=== PATIENT | male | born 1950 | race Caucasian/White ===

== ENCOUNTER 2019-10-21 09:57 | Emergency (ER) | payer OTHER, BC ==
[2019-10-21 11:15] LABS: INTERNATIONAL RATION (INR) 3.16; PROTHROMBIN TIME 33.1 SEC (11.4-15.4)
[2019-10-21 11:16] LABS: PARTIAL THROMBOPLASTIN TIME 43.3 SEC (23.5-35.8)
--- NOTE | 2019-10-21 11:49 | ER Document Report ---
ED Medical Screen (RME) - General Chief Complaint: Redness of Eye Stated Complaint: EYE PROBLEM Time Seen by Provider: 10/21/19 11:47 Notes: Patient is a 69-year-old male who presents emergency department with a chief complaint of bleeding on the eye. Patient reports he is on Coumadin and did notice some bleeding around the white of his eye last week. Patient reports this had improved. Patient denies trauma. Patient reports waking up this morning and noticing blood around the whites of his eye again. Patient denies trauma, fall, head injury, pain to the eye or visual disturbance. Patient denies blurred vision or double vision. TRAVEL OUTSIDE OF THE [place] IN LAST 30 DAYS: No - Related Data Allergies/Adverse Reactions: No Known Allergies Allergy (Verified 10/21/19 10:30) Home Medications: warafin. multivitamin. asa 81 Past Medical History - Social History Chew tobacco use (# tins/day): No Frequency of alcohol use: Social Drug Abuse: None Physical Exam - Vital signs Vitals: Temp Pulse Resp BP Pulse Ox 98.3 F 80 16 155/80 H 97 10/21/19 09:59 10/21/19 09:59 10/21/19 09:59 10/21/19 09:59 10/21/19 09:59 Course - Re-evaluation Re-evalutation: 10/21/19 11:48 Patient is noted to have a conjunctival hemorrhage noted to the right eye. Will obtain visual acuity and coagulation studies due to the patient's history of Coumadin. Patient no acute distress. I have greeted and performed a rapid initial assessment of this patient. A comprehensive ED assessment and evaluation of the patient, analysis of test results and completion of the medical decision making process will be conducted by additional ED providers. - Vital Signs Vital signs: Temp Pulse Resp BP Pulse Ox 98.3 F 80 16 155/80 H 97 10/21/19 10:30 10/21/19 10:30 10/21/19 10:30 10/21/19 10:30 10/21/19 10:30 - Laboratory Laboratory results interpreted by me: 10/21/19 10:52 PT 33.1 H APTT 43.3 H
--- NOTE | 2019-10-21 13:02 | ER Document Report ---
HPI - HPI Time Seen by Provider: 10/21/19 11:47 Pain Level: 0 Notes: Patient is a 69-year-old male who presents complaining of bleeding in the white of his eye on his right side that he noticed this morning without any precipitating event that he is aware of. He has not had any changes in his vision. He is otherwise able to eat and drink without difficulty. He is urinating normally and having normal bowel movements. He does not wear contact lenses. 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 He has not had his Coumadin checked in a while, usually just once per month. Patient states that he is supposed to be between 2 and 3 with his INR. He has no other concerns or complaints. No melena or hematochezia. No nosebleeds or hematuria. Denies any headache, fever, head injury, neck pain, changes in vision/speech/mentation/hearing, URI, sore throat, chest pain, palpitations, syncope, cough, shortness of breath, wheeze, dyspnea, abdominal pain, nausea/vomiting/diarrhea, urinary retention, dysuria, hematuria, or rash. - ROS Systems Reviewed and Negative: Yes All other systems reviewed and negative - EENT EENT: REPORTS: Ear Pain - Redness - REPRODUCTIVE Reproductive: DENIES: : Past Medical History - Social History Smoking Status: Current Every Day Smoker Chew tobacco use (# tins/day): No Frequency of alcohol use: Social Drug Abuse: None Family History: Reviewed & Not Pertinent Patient has suicidal ideation: No Patient has homicidal ideation: No Vertical Provider Document - CONSTITUTIONAL Agree With Documented VS: Yes Notes: PHYSICAL EXAMINATION: GENERAL: Well-appearing, well-nourished and in no acute distress. HEAD: Atraumatic, normocephalic. EYES: Pupils equal round and reactive to light, extraocular movements intact, sclera anicteric, + rt subconjunctival hemorrhage. ENT: Nares patent and without discharge. oropharynx clear without exudates. No tonsilar hypertrophy or erythema. Moist mucous membranes. NECK: Normal range of motion, supple without lymphadenopathy LUNGS: Breath sounds clear to auscultation bilaterally and equal. No wheezes rales or rhonchi. HEART: Regular rate and rhythm without murmurs, rubs, gallops. Musculoskeletal: FROM to passive/active. Strength 5+/5. Extremities: No cyanosis, clubbing, or edema b/l. Peripheral pulses 2+. Capillary refill less than 3 seconds. NEUROLOGICAL: Cranial nerves grossly intact. Normal speech, normal gait. Normal sensory, motor exams PSYCH: Normal mood, normal affect. SKIN: Warm, Dry, normal turgor, no rashes or lesions noted. - INFECTION CONTROL TRAVEL OUTSIDE OF THE [place] IN LAST 30 DAYS: No Course - Re-evaluation Re-evalutation: 10/21/19 12:59 Patient is an afebrile, well-hydrated, 69-year-old male who presents with a right subconjunctival hemorrhage, otherwise benign in the setting of having an INR of 3.16. This is just outside of his range of 2-3. Vitals are acceptable without significant tachycardia, tachypnea, or hypoxia. PE is otherwise unremarkable. There is no other evidence of bleeding. No further work-up warranted. We will have the patient hold his next Coumadin dose and then resume as usual, but he is to have his INR checked in the next 3 days [facility] Low suspicion for any other systemic or emergent condition at this time. Vision to monitor for any changes in symptoms or worsening bleeding. Recheck with your PCM next week. Return to the ED with any other worsening/concerning symptoms. Patient is in agreement. - Vital Signs Vital signs: Temp Pulse Resp BP Pulse Ox 98.3 F 80 16 155/80 H 97 10/21/19 10:30 10/21/19 10:30 10/21/19 10:30 10/21/19 10:30 10/21/19 10:30 - Laboratory Laboratory results interpreted by me: 10/21/19 10:52 PT 33.1 H APTT 43.3 H Discharge - Discharge Clinical Impression: Subconjunctival hemorrhage of right eye Condition: Stable Disposition: HOME, SELF-CARE Additional Instructions: Hold your next Coumadin dose Contact your family doctor on Wednesday to have an INR rechecked in about 3 days. Monitor for any other areas of bleeding Follow-up with your family provider next week Consider appointment with ophthalmology Return to the ED with any worsening symptoms and/or development of fever, headache, changes in behavior/mentation/vision/speech, chest pain, palpitations, syncope, shortness of breath, trouble breathing, abdominal pain, n/v/d, blood in stool/urine, loss of control of bowel/bladder, urinary retention, or other worsening symptoms that are concerning to you. Forms: Elevated Blood Pressure, Smoking Cessation Education Referrals: SILVIA SHEIKH MD [ACTIVE STAFF] - Follow up as needed
[2019-10-21 13:14] VITALS: BP 154/74
== END 2019-10-21 13:18 | disposition home or self-care (01) ==
LOC: ER 09:57
DX: H11.31 Conjunctival hemorrhage, right eye (principal); H92.09 Otalgia, unspecified ear; Z86.718 Personal history of other venous thrombosis and embolism; Z79.01 Long term (current) use of anticoagulants; F17.200 Nicotine dependence, unspecified, uncomplicated
CPT/HCPCS: 36415; 85610; 85730; 99283

== ENCOUNTER 2020-04-17 09:06 | Emergency (ER) | payer OTHER, MEDICARE, BC ==
[2020-04-17 09:10] VITALS: BP 153/74
--- NOTE | 2020-04-17 09:56 | RADIOLOGY REPORT (SQ) ---
EXAM DESCRIPTION: WRIST RIGHT 3 VIEWS IMAGES COMPLETED DATE/TIME: 04/17/2020 9:42 am REASON FOR STUDY: fall COMPARISON: None. NUMBER OF VIEWS: Three views. TECHNIQUE: AP, lateral, and oblique radiographic images acquired of the right wrist. LIMITATIONS: None. FINDINGS: MINERALIZATION: Normal. BONES: No acute fracture or dislocation. No worrisome bone lesions. Normal alignment. SOFT TISSUES: No soft tissue swelling. No foreign body. OTHER: No other significant finding. IMPRESSION: NO RADIOGRAPHIC EVIDENCE OF ACUTE INJURY. TECHNICAL DOCUMENTATION: JOB ID: [id number] 2010 [employer]- All Rights Reserved Reading location - IP/workstation name: [email or web address]
--- NOTE | 2020-04-17 10:19 | ER Document Report ---
HPI - HPI Patient complains to provider of: Right wrist injury Time Seen by Provider: 04/17/20 10:09 Pain Level: 4 Context: 69-year-old male past medical history significant for hypertension DVT presents emergency room complaining of right wrist pain. Patient states he was outside walking last night when he tripped and fell and landed on his right wrist. Took Tylenol without relief. Worsening pain and swelling today. No history of previ ous trauma or injury to his right wrist. Patient is right-handed. Denies any head trauma or head injury. No loss of consciousness. Associated Symptoms: None Exacerbated by: Movement Relieved by: Denies Similar symptoms previously: No Recently seen / treated by doctor: No - ROS ROS below otherwise negative: Yes - CONSTITUTIONAL Constitutional: DENIES: Fever - NEURO Neurology: DENIES: Weakness - REPRODUCTIVE Reproductive: DENIES: : - MUSCULOSKELETAL Musculoskeletal: REPORTS: Extremity pain - right wrist - DERM Skin Color: Normal Skin Problems: None Past Medical History - General Information source: Patient - Social History Smoking Status: Current Every Day Smoker Frequency of alcohol use: Heavy Drug Abuse: None Family History: Reviewed & Not Pertinent Patient has homicidal ideation: No - Past Medical History Cardiac Medical History: Reports: Hx Hypertension Past Surgical History: Reports: Hx Orthopedic Surgery - back/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 IN LAST 30 DAYS: No - HEENT HEENT: Atraumatic, Normocephalic - NECK Neck: Normal Inspection, Supple - RESPIRATORY Respiratory: Breath Sounds Normal, No Respiratory Distress, Chest Non-Tender. negative: Rales, Rhonchi, Wheezing - CARDIOVASCULAR Cardiovascular: Regular Rate, Regular Rhythm, No Murmur - MUSCULOSKELETAL/EXTREMETIES Musculoskeletal/Extremeties: FROM, Tender - Tenderness over the right distal radius. Full range of motion with pain noted with flexion and extension. No obvious deformity noted. - NEURO Level of Consciousness: Awake, Alert, Appropriate Motor/Sensory: No Motor Deficit, No Sensory Deficit Notes: Positive right radial pulse. Capillary refill less than 3 seconds. Neurovascular intact. - DERM Integumentary: Warm, Dry, No Rash Course - Re-evaluation Re-evalutation: 04/17/20 10:16 Patient is resting comfortably Madan wrap applied by nursing staff as documented. Reviewed x-ray results with patient. Counseled to rest, ice, elevate pain medication as prescribed. Can remove Madan wrap for shower. Outpatient follow-up with orthopedics if not improving in 2 to 3 days. On-call physician was provided. Patient was given strict return to the emergency room guidelines. Return for any new or worsening symptoms. All questions were answered. Patient verbalized understanding and agrees with plan of care. - Vital Signs Vital signs: Temp Pulse Resp BP Pulse Ox 98.6 F 88 16 153/74 H 97 04/17/20 09:09 04/17/20 09:09 04/17/20 09:09 04/17/20 09:09 04/17/20 09:09 - Diagnostic Test Radiology reviewed: Reports reviewed Discharge - Discharge Clinical Impression: Right wrist sprain Qualifiers: Encounter type: initial encounter Qualified Code(s): S63.501A - Unspecified sprain of right wrist, initial encounter Condition: Stable Disposition: HOME, SELF-CARE Instructions: Wrist Sprain ([facility]) Additional Instructions: Rest, ice, elevate. Take medications as prescribed. Follow-up with orthopedics if not improving in 2 to 3 days. Return for any new or worsening symptoms. Prescriptions: Hydrocodone/Acetaminophen [[place] 5-325 Tablet] 1 each PO Q6H PRN #12 tablet PRN Reason: For Pain Referrals: [facility] [Primary Care Provider] - Follow up as needed MELLISSA DELACRUZ MD [ACTIVE PROVISIONAL STAFF] - Follow up as needed
== END 2020-04-17 10:22 | disposition home or self-care (01) ==
LOC: ER 09:06
DX: S63.501A Unspecified sprain of right wrist, initial encounter (principal); W19.XXXA Unspecified fall, initial encounter; Y93.01 Activity, walking, marching and hiking; I10 Essential (primary) hypertension; F17.200 Nicotine dependence, unspecified, uncomplicated
CPT/HCPCS: 99283